=== PATIENT | female | born 1955 | race African-American/Black ===

== ENCOUNTER → 2018-12-25 12:38 | Outpatient (CLI) | payer BC, SELFPAY ==
--- NOTE | 2018-12-25 | DI.MG.S_ITS ---
BILATERAL DIGITAL SCREENING MAMMOGRAM 3D/2D WITH CAD: 12/25/2018 CLINICAL: Routine screening. Comparison is made to exams dated: 08/05/2015 mammogram, 01/14/2014 mammogram, and 01/14/2014 [facility]. The tissue of both breasts is extremely dense, which lowers the sensitivity of mammography. Current study was also evaluated with a Computer Aided Detection (CAD) system. There are mole markers on the right breast. There is a mole marker on the left breast. There is a linear scar marker overlying the right breast. No significant masses, calcifications, or other findings are seen in either breast. There has been no significant interval change. IMPRESSION: NEGATIVE There is no mammographic evidence of malignancy. A 1 year screening mammogram is recommended. This exam was interpreted at Station ID: [id number]. NOTE: For mammograms, a report in lay terms will be sent to the patient. Approximately 15% of breast malignancies will not be visualized mammographically. In the management of a palpable breast mass, a negative mammogram must not discourage biopsy of a clinically suspicious lesion. Electronically Signed By: Vivek Romo M.D. ecl/:12/25/2018 17:40:54 letter sent: Normal Exam ACR BI-RADS Category 1: Negative [id number]
== END ==
PROVIDERS: PCP Nurse Practitioner Family; Visit Provider Nurse Practitioner Family
DX: Z12.31 Encounter for screening mammogram for malignant neoplasm of breast (principal)
CPT/HCPCS: 77063; 77067

== ENCOUNTER → 2019-10-12 10:40 | Outpatient (CLI) | payer MEDICARE, SELFPAY ==
--- NOTE | 2019-10-29 08:03 | PM.PFT.1 ---
Pulmonary Function Test Referral & Results Date Patient Seen: 10/12/19 Requesting provider: Pop Talbot Results: The spirometry demonstrates an FVC of 3.22 L which is 94% of predicted. The FEV1 was measured at 2.66 L which is 101% of predicted. The FEV1/FVC ratio was 83 which is 107% of predicted. Following the administration of bronchodilator there was no appreciable change to above normal numbers. Lung volumes show an SVC of 3.3 L which is 106% of predicted. The diffusing capacity was measured at 20.24 which is 75% of predicted. No hemoglobin value was provided, so no correction for potential anemia could be made, if appropriate. The maximum voluntary ventilation was normal Interpretation: This study demonstrates probably normal pulmonary function There may be a minimal reduction in diffusing capacity suggesting minimal disease of the capillary alveolar level (unless patient is anemic). Clinical correlation suggested
== END ==
PROVIDERS: PCP Nurse Practitioner Family; Visit Provider Nurse Practitioner
DX: R06.02 Shortness of breath (principal)
CPT/HCPCS: 94060; 94726; 94729

== ENCOUNTER → 2020-05-30 09:39 | Outpatient (CLI) | payer MEDICARE, SELFPAY ==
[2020-05-30 12:33] LABS: Erythrocyte Sedimentation Rate 15 MM/HR (0-20)
[2020-05-30 12:49] LABS: Creatine Kinase 340 U/L (30-135)
[2020-05-30 13:23] LABS: Thyroid Stimulating Hormone 0.624 uIU/mL (0.47-4.68)
--- NOTE | 2020-06-02 09:24 | PM.PFT.1 ---
Pulmonary Function Test Referral & Results Date Patient Seen: 05/30/20 Requesting provider: Gadiel Marquez Results: The spirometry demonstrates an FVC of 2.88 L which is 84% of predicted. The FEV1 was measured at 2.37 L which is 90% of predicted. The FEV1/FVC ratio was 82 which is 106% of predicted. No bronchodilator was administered No lung volumes were performed The diffusing capacity was measured at 19.57 which is 72% of predicted. No hemoglobin value was provided, so no correction for potential anemia could be made, if appropriate. Interpretation: This study demonstrates probably normal forced spirometry Slight reduction in diffusing capacity is present Compared to PFTs performed in September 2019, current study is essentially unchanged
[2020-06-03 13:12] LABS: ANA Screen, IFA Negative (.)
== END ==
PROVIDERS: PCP Internal Medicine; Referring Provider Internal Medicine; Visit Provider Internal Medicine
DX: G70.9 Myoneural disorder, unspecified (principal); R06.09 Other forms of dyspnea
CPT/HCPCS: 36415; 82085; 82550; 84443; 85651; 86038; 94010; 94729

== ENCOUNTER → 2021-10-02 10:08 | Outpatient (CLI) | payer MEDICARE, SELFPAY ==
[2021-10-02 19:47] LABS: Add Manual Diff / Slide Review NO; Basophils Absolute Auto 0 /uL (0-100); Basophils Percent Auto 0.9 % (0-2); Eosinophils Absolute Auto 100 /uL (0-450); Eosinophils Percent Auto 4.2 % (2-4); Hematocrit 38.7 % (36-46); Hemoglobin 12.9 g/dL (12.0-16.0); Lymphocytes Absolute Auto 1400 /uL (1100-4500); Lymphocytes Percent Auto 46.4 % (25-40); Mean Corpuscular HGB Conc 33.4 % (30-36); Mean Corpuscular Hemoglobin 27.9 PG (26-34); Mean Corpuscular Volume 83.6 fL (80-100); Monocytes Absolute Auto 300 /uL (0-900); Monocytes Percent Auto 8.7 % (3-14); Neutrophils Absolute Auto 1200 /uL (1500-7000); Neutrophils Percent Auto 39.8 % (50-75); Platelet Count 149 X10^3/uL (150-400); Red Blood Cell Count 4.63 X10^6/uL (4.0-5.2); White Blood Cell Count 3.1 X10^3/uL (4.5-11.0)
[2021-10-02 20:00] LABS: Hemoglobin A1C% w Est Avg Glu 5.9 % (4.0-6.0)
[2021-10-02 20:07] LABS: BUN Creatinine Ratio 20.2 (6-22); Blood Urea Nitrogen 22 mg/dL (7-17); Calcium 10.3 mg/dL (8.4-10.2); Carbon Dioxide 29 mmol/L (22-32); Chloride 105 mmol/L (98-107); Cholesterol 237 mg/dL (140-199); Estimated Glomerular Filt Rate 50.1 mL/min (>60); Glucose 116 mg/dL (80-110); HDL Cholesterol 62 mg/dL (40-60); HEMOLYSIS < 15 (0-50); LDL Cholesterol Calculated 157 mg/dL (<100); Potassium 4.3 mmol/L (3.4-5.1); Sodium 137 mmol/L (137-145); Triglycerides 88 mg/dL (35-150)
== END ==
PROVIDERS: Specialist; PCP Internal Medicine
DX: E11.9 Type 2 diabetes mellitus without complications (principal); D69.6 Thrombocytopenia, unspecified
CPT/HCPCS: 80048; 80061; 83036; 85025

== ENCOUNTER → 2022-08-18 15:49 | Outpatient (CLI) | payer MEDICARE, SELFPAY ==
[2022-08-19 20:28] LABS: Influenza A - CEPHEID Flu A NEGATIVE (NEGATIVE); Influenza B - CEPHEID Flu B NEGATIVE (NEGATIVE); Respiratory Syncytial Virus Negative (Negative)
[2022-08-19 20:29] LABS: COVID-19 CEPHEID PCR (VTM/NP) Negative (Negative)
== END ==
PROVIDERS: PCP Internal Medicine; Visit Provider Physician Assistant Medical
DX: J06.9 Acute upper respiratory infection, unspecified (principal)
CPT/HCPCS: 0241U

== ENCOUNTER → 2022-12-13 13:08 | Outpatient (CLI) | payer MEDICARE, SELFPAY ==
[2022-12-13 19:57] LABS: Add Manual Diff / Slide Review NO; Basophils Absolute Auto 0 /uL (0-100); Basophils Percent Auto 0.8 % (0-2); Eosinophils Absolute Auto 200 /uL (0-450); Eosinophils Percent Auto 5.2 % (2-4); Hematocrit 38.1 % (36-46); Hemoglobin 12.7 g/dL (12.0-16.0); Lymphocytes Absolute Auto 1300 /uL (1100-4500); Lymphocytes Percent Auto 38.3 % (25-40); Mean Corpuscular HGB Conc 33.4 % (30-36); Mean Corpuscular Volume 80.8 fL (80-100); Monocytes Absolute Auto 300 /uL (0-900); Monocytes Percent Auto 9.7 % (3-14); Neutrophils Absolute Auto 1500 /uL (1500-7000); Platelet Count 159 X10^3/uL (150-400); Red Blood Cell Count 4.71 X10^6/uL (4.0-5.2); White Blood Cell Count 3.3 X10^3/uL (4.5-11.0)
[2022-12-13 20:15] LABS: Hemoglobin A1C% w Est Avg Glu 6.7 % (4.0-6.0)
[2022-12-13 20:16] LABS: BUN Creatinine Ratio 15.5 (6-22); Blood Urea Nitrogen 16 mg/dL (7-17); Calcium 9.9 mg/dL (8.4-10.2); Carbon Dioxide 29 mmol/L (22-32); Chloride 104 mmol/L (98-107); Cholesterol 219 mg/dL (140-199); Estimated Glomerular Filt Rate 59 mL/min (>60); Glucose 108 mg/dL (80-110); HDL Cholesterol 62 mg/dL (40-60); HEMOLYSIS < 15 (0-50); LDL Cholesterol Calculated 125 mg/dL (<100); Potassium 4.4 mmol/L (3.4-5.1); Sodium 141 mmol/L (137-145); Triglycerides 162 mg/dL (35-150)
[2022-12-15 15:54] LABS: Microalbumin Urine Random 0.7 mg/dL (0-1.6)
[2022-12-15 17:11] LABS: Microalbumi Creatinin Ratio Ur 17.9 ug/mg CR (<30)
== END ==
PROVIDERS: PCP Family Medicine; Visit Provider Family Medicine
DX: E11.9 Type 2 diabetes mellitus without complications (principal); D69.6 Thrombocytopenia, unspecified; D70.9 Neutropenia, unspecified; E78.2 Mixed hyperlipidemia; E83.52 Hypercalcemia; I10 Essential (primary) hypertension
CPT/HCPCS: 80048; 80061; 82043; 82570; 83036; 85025

== ENCOUNTER → 2024-04-24 14:27 | Outpatient (CLI) | payer MEDICARE, SELFPAY ==
[2024-04-24 20:37] LABS: Hemoglobin A1C% w Est Avg Glu 6.6 % (4.0-6.0)
[2024-04-24 21:31] LABS: Vitamin B12 347 pg/mL (239-931)
== END ==
PROVIDERS: PCP Family Medicine; Visit Provider Specialist
DX: Z13.21 Encounter for screening for nutritional disorder (principal); E11.9 Type 2 diabetes mellitus without complications
CPT/HCPCS: 82607; 83036

== ENCOUNTER 2024-06-05 15:05 | Emergency (ER) | payer MEDICARE, SELFPAY ==
[2024-06-05 15:08] VITALS: BP 167/90; PULSE 78; RESP 16; TEMP 36.4; O2SAT 100; BMI 23.3
--- NOTE | 2024-06-05 15:39 | ED_ITS ---
HPI - Extremity Problem <Lon Tabares PA-C - Last Filed: 06/05/24 17:48> General Chief complaint: Extremity Problem,Nontraumatic Stated complaint: right leg pain/swelling Time Seen by Provider: 06/05/24 15:25 History of Present Illness HPI Narrative: 68-year-old female with past medical history diabetes, hyperlipidemia, hypertension presents to the ED with 1 week of right-sided leg pain and swelling. No trauma. Spontaneous onset of pain. No numbness, tingling, weakness. No chest pain, shortness of breath, fever, chills. Related Data Home Medications Medication Instructions Recorded Confirmed losartan 50 mg-hydrochlorothiazide 1 tab PO DAILY 07/15/20 11/25/22 12.5 mg tablet aspirin 81 mg tablet,delayed 81 mg PO DAILY 11/25/22 11/25/22 release calcium carbonate 500 mg-vitamin 1 tab PO DAILY 11/25/22 11/25/22 D3 10 mcg (400 unit) tablet furosemide 20 mg tablet 20 mg PO DAILY 11/25/22 11/25/22 metformin 500 mg tablet 500 mg PO BID 11/25/22 11/25/22 metoprolol succinate 25 mg 25 mg PO BID 11/25/22 11/25/22 tablet,extended release 24 hr propranolol 60 mg capsule,24 60 mg PO DAILY 11/25/22 11/25/22 hr,extended release Previous Rx's Medication Instructions Recorded acyclovir 400 mg tablet 400 mg PO BID #60 tabs 06/07/17 ketoconazole 2 % topical cream 1 applic topical DAILY #60 grams 01/21/23 Allergies Allergy/AdvReac Type Severity Reaction Status Date / Time lisinopril Allergy Mild Cough Verified 11/25/22 09:15 Review of Systems <Lon Tabares PA-C - Last Filed: 06/05/24 17:48> Constitutional Constitutional: Denies chills, Denies fatigue, Denies fever(s), Denies frequent falls, Denies lethargy and Denies weakness Eyes Eyes: Denies change in vision, Denies eye discharge, Denies irritation and Denies loss of vision ENT Ears, Nose, Mouth, and Throat: Denies change in voice, Denies dizziness, Denies neck pain, Denies sore throat and Denies throat swelling Cardiovascular Cardiovascular: Denies chest pain, Denies irregular heart rhythm, Denies lightheadedness, Denies palpitations, Denies dyspnea, Denies dyspnea on exertion and Denies orthopnea Respiratory Respiratory: Denies cough, Denies dyspnea, Denies dyspnea on exertion and Denies wheezing Gastrointestinal Gastrointestinal: Denies abdominal pain, Denies change in bowel habits, Denies diarrhea, Denies nausea and Denies vomiting Musculoskeletal Musculoskeletal: Denies neck pain and Denies numbness Comments: Right leg pain from lower thigh down to calf. Integumentary/Breasts Skin/Breast: Denies pruritus, Denies erythema, Denies rash and Denies wounds Neurologic Neurologic: Denies behavioral changes, Denies confusion, Denies dizziness, Denies frequent falls, Denies loss of vision, Denies numbness and Denies weakness Psychiatric Psychiatric: Denies anxiety, Denies behavioral changes, Denies confusion, Denies depression, Denies homicidal ideation and Denies suicidal ideation Endocrine Endocrine: Denies fatigue, Denies flushing and Denies palpitations Hematologic/Lymphatic Hematologic/Lymphatic: Denies easy bruising Allergic/Immunologic Allergic/Immunologic: Denies urticaria, Denies throat swelling and Denies wheezing Patient History <Lon Tabares PA-C - Last Filed: 06/05/24 17:48> Medical History Scoliosis Chronic back pain Colon polyps Essential tremor Hyperlipidemia, mixed Primary hypertension Family History Mother Diabetes mellitus Hypertension Depression Father Hypertension Dementia Family/Other Loud snoring Hypertension Diabetes mellitus Alcohol abuse Substance abuse Social History Smoking Status: Never smoker Smoking Status: Never smoker alcohol intake frequency: holidays/special occasions only Substance Use Type: does not use Exam <Lon Tabares PA-C - Last Filed: 06/05/24 17:48> Narrative Exam Narrative: Const General:?cooperative, healthy appearing and comfortable [facility] Head:?normal to inspection Ears:?hearing grossly normal bilaterally Nose:?external nose normal Face and sinus:?normal facial exam and sinuses nontender Mouth:?oral mucosae normal Throat:?posterior oropharynx normal Eyes General:?appearance normal, both eyes and all related structures Neck Neck:?normal visual inspection and no lymphadenopathy noted Resp Effort & Inspection:?normal respiratory effort Auscultation:?clear to auscultation bilaterally Cardio Rate:?regular rate Rhythm:?regular rhythm Musculoskeletal There is mild swelling of the right lower leg compared to the left. There is tenderness to palpation of the right calf. Strength and sensation is intact. Pulses intact. Full range of motion. Gait is normal. Neurovascularly intact. Neuro General:?patient alert, patient awake and patient oriented x3 Initial Vital Signs Initial Vital Signs: Vital Signs Temperature 97.5 F L 06/05/24 15:08 Pulse Rate 78 06/05/24 15:08 Respiratory Rate 16 06/05/24 15:08 Blood Pressure 167/90 H 06/05/24 15:08 Pulse Oximetry 100 06/05/24 15:08 Oxygen Delivery Method Room Air 06/05/24 15:08 <Iman Schaffer DO - Last Filed: 06/09/24 23:55> Initial Vital Signs Initial Vital Signs: Vital Signs Temperature 97.5 F L 06/05/24 15:08 Pulse Rate 78 06/05/24 15:08 Respiratory Rate 16 06/05/24 15:08 Blood Pressure 167/90 H 06/05/24 15:08 Pulse Oximetry 100 06/05/24 15:08 Oxygen Delivery Method Room Air 06/05/24 15:08 Course <Lon Tabares PA-C - Last Filed: 06/05/24 17:48> Orders Ordered: ED Orders 06/05/24 16:07 US periph venous low extrem rt Stat Vital Signs Vital signs: Vital Signs - 8 hr 06/05/24 15:08 Temperature 97.5 F L Pulse Rate 78 Respiratory Rate 16 Blood Pressure 167/90 H Pulse Oximetry 100 Oxygen Delivery Method Room Air <DO Pierce Anne Last Filed: 06/09/24 23:55> Orders Ordered: ED Orders 06/05/24 16:07 US periph venous low extrem rt Stat Vital Signs Vital signs: Vital Signs - 8 hr 06/05/24 15:08 Temperature 97.5 F L Pulse Rate 78 Respiratory Rate 16 Blood Pressure 167/90 H Pulse Oximetry 100 Oxygen Delivery Method Room Air MDM - Extremity (Nontraumatic) <CRISTELA Funes Last Filed: 06/05/24 17:48> MDM Narrative Medical decision making narrative: 68-year-old female with past medical history diabetes, hyperlipidemia, hypertension presents to the ED with 1 week of right-sided leg pain and swelling. Will obtain right lower extremity ultrasound to rule out a DVT. DVT right lower extremity without acute findings. Patient's symptoms likely due to a musculoskeletal sprain/strain. Recommend Tylenol, lidocaine patches. Recommend follow-up with PCP as soon as possible. ED return precautions discussed with patient. Patient verbalized understanding. Medical records reviewed: Yes Discharge Plan Departure Patient Disposition: Home Clinical Impression: Leg pain Qualifiers: Laterality: right Qualified Code(s): M79.604 - Pain in right leg Instructions: DI for Leg Pain Activity Restrictions/Additional Instructions: You were evaluated in the ED today for right-sided leg pain. The ultrasound was normal. It appears that your symptoms are most likely due to a musculoskeletal sprain/strain of the right leg. You may take Tylenol for your symptoms. You may also apply lidocaine patches which are available [id number] in the drug stores. Please follow-up with your PCP as soon as possible. Return to the ED if you have worsening symptoms, numbness, tingling, weakness Prescriptions: No Action acyclovir 400 MG tablet 400 mg PO BID Qty: 60 12RF ketoconazole 2 % cream 1 applic topical DAILY Qty: 60 0RF furosemide 20 mg tablet 20 mg PO DAILY propranolol 60 mg capsule,extended release 24 hr 60 mg PO DAILY metoprolol succinate 25 mg tablet extended release 24 hr 25 mg PO BID aspirin 81 mg tablet,delayed release (DR/EC) 81 mg PO DAILY calcium carbonate-vitamin D3 500 mg-10 mcg (400 unit) tablet 1 tab PO DAILY losartan-hydrochlorothiazide 50-12.5 mg tablet 1 tab PO DAILY metformin 500 mg tablet 500 mg PO BID Referrals: Pio Macdonald MD [Primary Care Provider] - Stand Alone Forms: Patient Portal/API ED Sign-out <Iman Schaffer DO - Last Filed: 06/09/24 23:55> Cosign ED Attending Cosignature Attestation: I was available for consultation.
--- NOTE | 2024-06-05 16:07 | DI.US.S_ITS ---
PROCEDURE: US PERIPH VENOUS LOW EXTREM RT INDICATIONS: R leg pain TECHNIQUE: Real-time imaging, as well as color and pulse Doppler interrogation, were performed of the lower extremity deep veins from the inguinal ligament to the popliteal fossa, with documentation of the visualized calf veins. COMPARISON: None. FINDINGS: The common femoral, femoral, popliteal, and the visualized calf veins are normally compressible, and free of intraluminal thrombus. Color and pulse Doppler demonstrate normal phasic intraluminal flow. There is normal augmentation response to distal compression maneuver. IMPRESSION: Negative right lower extremity duplex venous ultrasound for DVT. Dictated by: Zoran Vazquez M.D. on 06/05/2024 at 17:37 Approved by: Zoran Vazquez M.D. on 06/05/2024 at 17:38
[2024-06-05 17:46] VITALS: BP 135/74; PULSE 77; RESP 16; O2SAT 100
== END 2024-06-05 17:46 | disposition home or self-care (01) ==
PROVIDERS: Emergency Provider Student in an Organized Health Care Education/Training Program; PCP Family Medicine
DX: M79.604 Pain in right leg (principal); R22.41 Localized swelling, mass and lump, right lower limb
CPT/HCPCS: 93971; 99282; 99283

== ENCOUNTER → 2024-08-08 08:55 | Outpatient (CLI) | payer MEDICARE, SELFPAY ==
[2024-08-08 20:36] LABS: Add Manual Diff / Slide Review NO; Basophils Absolute Auto 0 /uL (0-100); Basophils Percent Auto 0.9 % (0-2); Eosinophils Absolute Auto 200 /uL (0-450); Eosinophils Percent Auto 6.5 % (2-4); Hematocrit 40.6 % (36-46); Hemoglobin 13.6 g/dL (12.0-16.0); Lymphocytes Absolute Auto 1500 /uL (1100-4500); Lymphocytes Percent Auto 46.5 % (25-40); Mean Corpuscular HGB Conc 33.6 % (30-36); Mean Corpuscular Hemoglobin 27.5 PG (26-34); Mean Corpuscular Volume 81.8 fL (80-100); Monocytes Absolute Auto 200 /uL (0-900); Monocytes Percent Auto 7.8 % (3-14); Neutrophils Absolute Auto 1200 /uL (1500-7000); Neutrophils Percent Auto 38.3 % (50-75); Platelet Count 190 X10^3/uL (150-400); Red Blood Cell Count 4.96 X10^6/uL (4.0-5.2); White Blood Cell Count 3.2 X10^3/uL (4.5-11.0)
[2024-08-08 20:49] LABS: Hemoglobin A1C% w Est Avg Glu 6.8 % (4.0-6.0)
[2024-08-08 20:53] LABS: Alanine Aminotransferase 13 IU/L (<35); Albumin 4.4 g/dL (3.5-5.0); Albumin Globulin Ratio 1.2 (1.0-2.8); Alkaline Phosphatase 92 U/L (38-126); Aspartate Aminotransferase 24 IU/L (14-36); BUN Creatinine Ratio 20.7 (6-22); Bilirubin Total 0.5 mg/dL (0.2-1.3); Blood Urea Nitrogen 24 mg/dL (7-17); Calcium 10.8 mg/dL (8.4-10.2); Carbon Dioxide 29 mmol/L (22-32); Chloride 103 mmol/L (98-107); Cholesterol 246 mg/dL (140-199); Estimated Glomerular Filt Rate 51 mL/min (>60); Globulin 3.6 g/dL (1.7-4.1); Glucose 150 mg/dL (80-110); HDL Cholesterol 74 mg/dL (40-60); HEMOLYSIS < 15 (0-50); LDL Cholesterol Calculated 147 mg/dL (<100); Potassium 4.2 mmol/L (3.4-5.1); Sodium 140 mmol/L (137-145); Triglycerides 126 mg/dL (35-150)
[2024-08-08 21:00] LABS: Troponin I < 0.012 ng/mL (0.01-0.034)
[2024-08-08 21:19] LABS: TSH w/ Reflex to FT4 1.17 uIU/mL (0.47-4.68)
[2024-08-08 21:45] LABS: Creatinine Urine Random 33.22 mg/dL
[2024-08-08 21:49] LABS: Microalbumin Urine Random < 0.6 mg/dL (0-1.6)
== END ==
PROVIDERS: PCP Family Medicine; Referring Provider Family Medicine; Visit Provider Family Medicine
DX: E11.9 Type 2 diabetes mellitus without complications (principal); I31.9 Disease of pericardium, unspecified; I10 Essential (primary) hypertension; E78.2 Mixed hyperlipidemia; D70.9 Neutropenia, unspecified; D69.6 Thrombocytopenia, unspecified
CPT/HCPCS: 80053; 80061; 82043; 82570; 83036; 84443; 84484; 85025

== ENCOUNTER → 2024-09-17 13:37 | Outpatient (CLI) | payer MEDICARE, SELFPAY ==
[2024-09-17 19:46] LABS: Vitamin D 25 Hydroxy (D3) 48.6 ng/mL (30.0-100.0)
== END ==
PROVIDERS: PCP Family Medicine; Visit Provider Family Medicine
DX: E83.52 Hypercalcemia (principal)
CPT/HCPCS: 82306; 82310; 83970; 84155; 84165

== ENCOUNTER → 2024-12-31 10:27 | Outpatient (CLI) | payer MEDICARE, SELFPAY ==
[2024-12-31 19:22] LABS: Cholesterol 135 mg/dL (140-199); HDL Cholesterol 58 mg/dL (40-60); LDL Cholesterol Calculated 67 mg/dL (<100); Triglycerides 52 mg/dL (35-150)
== END ==
PROVIDERS: PCP Family Medicine; Visit Provider Family Medicine
DX: E78.2 Mixed hyperlipidemia (principal); E11.9 Type 2 diabetes mellitus without complications
CPT/HCPCS: 80061; 83036

== ENCOUNTER → 2025-08-12 08:18 | Outpatient (CLI) | payer MEDICARE, SELFPAY ==
[2025-08-12 18:50] LABS: Add Manual Diff / Slide Review NO; Hematocrit 38.8 % (36-46); Hemoglobin 13.1 g/dL (12.0-16.0); Lymphocytes Absolute Auto 1400 /uL (1100-4500); Mean Corpuscular HGB Conc 33.7 % (30-36); Mean Corpuscular Hemoglobin 27.7 PG (26-34); Mean Corpuscular Volume 82.3 fL (80-100); Platelet Count 153 X10^3/uL (150-400)
[2025-08-12 19:16] LABS: Hemoglobin A1C% w Est Avg Glu 6.9 % (4.0-6.0)
[2025-08-12 19:20] LABS: Blood Urea Nitrogen 19 mg/dL (7-17); Calcium 10.2 mg/dL (8.4-10.2); Carbon Dioxide 26 mmol/L (22-32); Chloride 106 mmol/L (98-107); Cholesterol 146 mg/dL (140-199); Estimated Glomerular Filt Rate 56 mL/min (>60); Glucose 156 mg/dL (70-99); HDL Cholesterol 72 mg/dL (40-60); HEMOLYSIS < 15 (0-50); Potassium 4.5 mmol/L (3.4-5.1); Sodium 139 mmol/L (137-145); Triglycerides 85 mg/dL (35-150)
[2025-08-12 19:23] LABS: Microalbumi Creatinin Ratio Ur 11.0 ug/mg CR (<30)
[2025-08-12 20:06] LABS: Vitamin B12 387 pg/mL (239-931)
== END ==
PROVIDERS: PCP Specialist; Visit Provider Family Medicine
DX: E83.52 Hypercalcemia (principal); E11.9 Type 2 diabetes mellitus without complications; E78.2 Mixed hyperlipidemia; I10 Essential (primary) hypertension; D70.9 Neutropenia, unspecified; G62.9 Polyneuropathy, unspecified; D69.6 Thrombocytopenia, unspecified
CPT/HCPCS: 80048; 80061; 82043; 82570; 82607; 83036; 84155; 84165; 85025